=== PATIENT | male | born 1985 | race Hispanic/Latino ===

== ENCOUNTER 2016-11-09 15:45 | Emergency (ER) | payer OTHER ==
[2016-11-09] MEDS ORDERED: MORPHINE ONE ×2 (16:31)
[2016-11-09] MEDS ORDERED: ZOFRAN ONE (16:32)
[2016-11-09] MEDS ORDERED: MORPHINE IV ONE (16:41)
[2016-11-09] MEDS ORDERED: ZOFRAN IV ONE (16:41)
--- NOTE | 2016-11-09 16:51 | XRay Report ---
RIGHT KNEE RADIOGRAPH INDICATION: Pain and swelling. COMPARISON: None similar at this institution. FINDINGS: Single crosstable lateral radiograph of the right knee suggests somewhat high positioned patella, possibly dislocated/patellar tendon rupture or patella juanis. No significant effusion or definite bony fracture. Frontal view not obtainable. CONCLUSION: Findings, as above. Please correlate. Thank you for the opportunity to participate in this patient's care.
[2016-11-09] MEDS ORDERED: SUBLIMAZE ONE (17:41)
[2016-11-09] MEDS ORDERED: SUBLIMAZE IV ONE ×2 (17:45→18:06)
--- NOTE | 2016-11-09 18:54 | Emergency Department Report ---
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 Patient really fell to the ground and was unable to bear weight on his leg. He noticed an obvious deformity of his right knee but had normal sensation and movement of the distal extremity. MD Complaint: knee injury -: Sudden Injury: Knee: Right Type of Injury: unknown Place: work Severity: severe Improves With: nothing, immobilization Worsens With: movement, palpation Context: other (twisted) Associated Symptoms: snap/pop sensation, unable to bear weight - Related Data Previous Rx's Medication Instructions Recorded Last Taken Type HYDROcodone/APAP 5-325 [[place] 1 each PO Q6HR PRN #15 tablet 11/09/16 Unknown Rx 5-325 mg TAB] Ibuprofen [Motrin] 600 mg PO Q8H PRN #30 tablet 11/09/16 Unknown Rx Allergies Allergy/AdvReac Type Severity Reaction Status Date / Time Penicillins Allergy Hives Verified 11/09/16 16:03 ED Review of Systems ROS: Stated complaint: DISLOCATED KNEE Other details as noted in HPI Constitutional: denies: malaise, weakness Respiratory: denies: cough, orthopnea Cardiovascular: denies: chest pain, palpitations Musculoskeletal: denies: back pain, joint swelling, arthralgia, myalgia Neurological: denies: headache, weakness ED Past Medical Hx - Past Medical History Hx Hypertension: Yes - Surgical History Past Surgical History?: No Additional Surgical History: oral surgery - Family History Family history: no significant - Social History Smoking Status: Never Smoker Substance Use Type: None - Medications Home Medications: Home Medications Medication Instructions Recorded Confirmed Last Taken Type HYDROcodone/APAP 5-325 [[place] 1 each PO Q6HR PRN #15 tablet 11/09/16 Unknown Rx 5-325 mg TAB] Ibuprofen [Motrin] 600 mg PO Q8H PRN #30 tablet 11/09/16 Unknown Rx ED Physical Exam - General Limitations: Physical Limitation General appearance: alert, other (in significant pain) - Head Head exam: Present: atraumatic, normocephalic - Neck Neck exam: Present: normal inspection. Absent: tenderness - Respiratory Respiratory exam: Present: normal lung sounds bilaterally. Absent: respiratory distress - Cardiovascular Cardiovascular Exam: Present: regular rate, normal rhythm - GI/Abdominal GI/Abdominal exam: Present: soft. Absent: distended - Expanded Lower Extremity Exam Right Knee exam: Present: tenderness, swelling, deformity (high riding patella). Absent: full ROM Ankle exam: Present: full ROM Foot/Toe exam: Present: normal inspection (normal neurovascular status), full ROM. Absent: tenderness, swelling Neuro vascular tendon exam: Present: no vascular compromise. Absent: pulse deficit - Back Exam Back exam: Present: normal inspection, full ROM ED Course Vital Signs 11/09/16 11/09/16 11/09/16 15:57 16:00 16:04 Temperature 97.6 F Pulse Rate 101 H Respiratory 18 Rate Blood Pressure 145/109 145/109 O2 Sat by Pulse 100 99 100 Oximetry 11/09/16 11/09/16 11/09/16 16:11 16:21 16:31 Temperature Pulse Rate 97 H 100 H 98 H Respiratory 17 13 15 Rate Blood Pressure 150/109 162/98 162/98 O2 Sat by Pulse 100 99 100 Oximetry 11/09/16 11/09/16 11/09/16 16:41 16:42 16:51 Temperature Pulse Rate 103 H 100 H Respiratory 14 18 15 Rate Blood Pressure 145/109 145/109 O2 Sat by Pulse 99 97 Oximetry 11/09/16 11/09/16 11/09/16 17:00 17:11 17:21 Temperature Pulse Rate 103 H 100 H 104 H Respiratory 15 13 18 Rate Blood Pressure 149/104 149/104 149/104 O2 Sat by Pulse 100 98 99 Oximetry 11/09/16 11/09/16 11/09/16 17:31 17:41 17:51 Temperature Pulse Rate 102 H 105 H 105 H Respiratory 13 12 15 Rate Blood Pressure 149/104 149/104 149/104 O2 Sat by Pulse 99 100 100 Oximetry 11/09/16 11/09/16 18:00 18:11 Temperature Pulse Rate 99 H 103 H Respiratory 14 17 Rate Blood Pressure 153/97 153/97 O2 Sat by Pulse 100 100 Oximetry ED Lower Extremity MDM - Radiology Data Radiology results: report reviewed, image reviewed - Medical Decision Making Patient is a 30-year-old male with patellar tendon rupture. Patient arrived with the knee in significant flexion. After several rounds of pain medicine was able to straighten the provide relief for the patient. Discussed the case with Dr. John of orthopedics. He will see the patient in the clinic on Monday. Patient is placed in knee immobilizer and will go home with crutches and pain control. Portions of this chart were dictated with dictation software. There may be dictation errors contained within this note. Critical care attestation.: If time is entered above; I have spent that time in minutes in the direct care of this critically ill patient, excluding procedure time. ED Disposition Clinical Impression: Patellar tendon rupture Disposition: DC- TO HOME OR SELFCARE Is pt being admited?: No Condition: Stable Instructions: Patella Tendon Repair (ED), Patella Tendon Repair (GEN) Prescriptions: HYDROcodone/APAP 5-325 [[place] 5-325 mg TAB] 1 each PO Q6HR PRN #15 tablet PRN Reason: Pain Ibuprofen [Motrin] 600 mg PO Q8H PRN #30 tablet PRN Reason: Pain Referrals: PRIMARY CAREMD [Primary Care Provider] - 3-5 Days SETH JOHN MD [Staff Physician] - 2-3 Days (Follow-up with Dr. John on Monday)
[2016-11-09 20:19] VITALS: BP 147/82
--- NOTE | 2016-11-10 07:43 | XRay Report ---
RIGHT KNEE RADIOGRAPHS INDICATION: Pain and swelling. Postreduction. COMPARISON: 4:37 PM earlier today. FINDINGS: AP and crosstable lateral radiographs of the right knee, 6:38 PM, 11/09/2016 again demonstrate high positioned patella with prepatellar soft tissue swelling/prominence and some suprapatellar heterogeneity. Some extrinsic artifacts limit exam. Tibiofemoral articulation is preserved. Slight degenerative tibial spine prominence. CONCLUSION: High positioned patella again possibly be dislocated/tendon rupture or patella juanis. Orthopedic correlation and/or MRI may be considered, as appropriate. Thank you for the opportunity to participate in this patient's care.
== END 2016-11-09 20:19 | disposition home or self-care (01) ==
LOC: ED 15:45
DX: S76.111A Strain of right quadriceps muscle, fascia and tendon, initial encounter (principal); I10 Essential (primary) hypertension; Z88.0 Allergy status to penicillin; W18.30XA Fall on same level, unspecified, initial encounter; Y93.89 Activity, other specified; Y99.9 Unspecified external cause status; Y92.89 Other specified places as the place of occurrence of the external cause
CPT/HCPCS: 29505; 73560; 96374; 96375; 99284; J2270; J2405; J3010